=== PATIENT | female | born 1950 | race Hispanic/Latino ===

== ENCOUNTER 2023-02-10 06:16 | Day surgery (SDC) | payer MEDICARE ==
[2023-02-09 12:25] VITALS: BP 198/71; PULSE 76; RESP 18
[2023-02-09 12:46] LABS: BASOPHILS # (AUTO) 0.06 K/uL (0.00-0.20); BASOPHILS % (AUTO) 0.6 % (0.0-5.0); EOSINOPHILS # (AUTO) 0.23 K/uL (0.00-0.70); EOSINOPHILS % (AUTO) 2.1 % (0.0-8.0); HEMATOCRIT 34.3 % (36-48); IMMATURE GRANULOCYTE ABSOLUTE 0.04 K/uL (0-1); LYMPHOCYTES # (AUTO) 2.8 K/uL (1.0-4.8); LYMPHOCYTES % (AUTO) 26.4 % (21.0-51.0); MEAN CORPUSCULAR HEMOGLOBIN 31.1 pg (27.0-33.0); MEAN CORPUSCULAR HGB CONC 31.2 g/dL (32.0-36.0); MEAN CORPUSCULAR VOLUME 99.7 fL (79-99); MONOCYTES # (AUTO) 0.7 K/uL (0.1-1.0); MONOCYTES % (AUTO) 6.5 % (3.0-13.0); NEUTROPHILS # (AUTO) 6.9 K/uL (1.8-7.7); PLATELET COUNT (AUTO) 418 K/uL (130-400); RED BLOOD CELL COUNT(AUTO) 3.44 MIL/uL (4.00-5.50); WHITE BLOOD COUNT (AUTO) 10.8 K/uL (4.8-10.8)
[2023-02-09 13:05] LABS: ALBUMIN 3.3 g/dL (3.5-5.0); BILIRUBIN,TOTAL 0.2 mg/dL (0.2-1.0); CREATININE 0.9 mg/dL (0.5-1.5); POTASSIUM 3.9 mmol/L (3.5-5.1); TOTAL PROTEIN, SERUM 8.8 g/dL (6.0-8.3)
[2023-02-10] VITALS (19 sets, daily range): BP systolic 137–174; BP diastolic 49–73; PULSE 70–82; RESP 12–18
[~2023-02-10] VITALS: Ht 157.5 cm; Wt 57.1 kg
[~2023-02-10 06:16] MED LIST: ALPR0.255 PO; FISH1CAP50 PO; LOSA100T59 PO; MULT-1367 PO
[2023-02-10] MEDS ORDERED: CEFAZOLIN SODIUM 2 GM VIAL ONE (07:08)
[2023-02-10] MEDS ORDERED: LACTATED RINGERS 1000ML 1,000 ML IV ONE (07:08)
[2023-02-10] MEDS ORDERED: IOHEXOL-350 50ML VIAL IV ONE (08:18)
[2023-02-10] MEDS ORDERED: BUPIVACAINE/PF 0.5% 30ML VIAL ONE (08:20)
[2023-02-10] MEDS ORDERED: BUPIVACAINE/PF 0.5% 30ML VIAL INJ ONE ×2 (08:37→10:59)
[2023-02-10] MEDS ORDERED: SUCCINYLCHOLINE CHLORIDE 20 MG/ML 10 ML VIAL ONE (09:03)
[2023-02-10] MEDS ORDERED: ONDANSETRON 4MG INJ ONE (09:03)
[2023-02-10] MEDS ORDERED: LIDOCAINE PF 100MG/5ML (2%) SYRINGE 5ML ONE (09:03)
[2023-02-10] MEDS ORDERED: DEXAMETHASONE SOD PHOSPHATE 10MG/ML 1ML VIAL ONE (09:03)
[2023-02-10] MEDS ORDERED: GLYCOPYRROLATE 1 MG/5 ML SYRINGE ONE (09:04)
[2023-02-10] MEDS ORDERED: MIDAZOLAM HCL 1 MG/ML 2ML VIAL ONE ×2 (09:04→11:03)
[2023-02-10] MEDS ORDERED: NEOSTIGMINE 5MG/5ML SYR IV ONE (09:04)
[2023-02-10] MEDS ORDERED: FENTANYL CITRATE PF 50 MCG/1 ML 2ML VIAL ONE (09:04)
[2023-02-10] MEDS ORDERED: PROPOFOL 10 MG/ML 20ML VIAL IV ONE (09:04)
[2023-02-10] MEDS ORDERED: ROCURONIUM 10MG/1ML SYR 10 MG/ML ML ONE (09:04)
[2023-02-10] MEDS ORDERED: CEFAZOLIN SODIUM 2 GM VIAL IVPB ONE (10:40)
[2023-02-10] MEDS ORDERED: KETAMINE 50MG/ML SYRINGE 50 MG/ML DISP.SYRIN ONE (11:01)
[2023-02-10] MEDS ORDERED: MEPERIDINE-PF 25 MG/ML SYG ONE (11:53)
[2023-02-10] MEDS ORDERED: KETOROLAC 30MG VIAL (30MG/ML) ONE (11:53)
== END 2023-02-10 14:40 | disposition home or self-care (01) ==
LOC: DAH 06:16
PROVIDERS: ATTEND Surgery
DX: K80.10 Calculus of gallbladder with chronic cholecystitis without obstruction (principal); I10 Essential (primary) hypertension; E78.00 Pure hypercholesterolemia, unspecified; F41.9 Anxiety disorder, unspecified; K21.9 Gastro-esophageal reflux disease without esophagitis; Z20.822 Contact with and (suspected) exposure to COVID-19; Z88.5 Allergy status to narcotic agent; Z91.041 Radiographic dye allergy status; Z98.51 Tubal ligation status; Z98.890 Other specified postprocedural states
CPT/HCPCS: 80053; 85025; 86850; 86900; 86901; 36415; 47562; A4600; A6260; A4663; J7030; J7120 ×2; C1758; J3010; J3490 ×4; J1100; J2710; J0330; J2001; J2250 ×2; J2704; J2405; J1885; J2175; Q9967; J0690 ×2; G0168; A4649 ×2; A4215; A4223; A4222; A4221